=== PATIENT | male | born 1955 | race Caucasian/White ===

== ENCOUNTER 2024-11-26 08:38 | Outpatient (CLI) | payer MEDICARE, BC | END 2024-11-26 08:39 | disposition home or self-care (01) | LOC: CSHCT 08:38 | PROVIDERS: ATTEND Urology | DX: R31.29 Other microscopic hematuria (principal); N20.0 Calculus of kidney; N42.9 Disorder of prostate, unspecified | CPT/HCPCS: 74176 ==